=== PATIENT | female | born 1970 | race Caucasian/White ===

== ENCOUNTER 2017-10-18 11:58 | Emergency (ER) | payer OTHER ==
--- NOTE | 2017-10-18 17:58 | RAD ---
HISTORY: Low back pain COMPARISONS: None TECHNIQUE: Multiple contiguous axial CT scans were obtained of the lumbar spine without intravenous contrast, with coronal and sagittal multiplanar reformations. FINDINGS: SPINAL CANAL: Evaluation of the central canal is limited on CT technique; however, there is no obvious canalicular mass or epidural hemorrhage. ALIGNMENT: There is straightening of the lumbar lordosis. VERTEBRAL BODIES: There is minimal anterolateral marginal osteophyte formation with a small Schmorl's node along the superior end plate of L3. JOINTS: No subluxation or dislocation. MUSCULATURE: Normal INTERVERTEBRAL DISCS: There is mild loss of intervertebral disc height throughout the spine. AXIAL IMAGES: T12-L1: There is no osseous neural foraminal narrowing or central canal stenosis. L1-L2: There is no osseous neural foraminal narrowing or central canal stenosis. L2-L3: There is no osseous neural foraminal narrowing or central canal stenosis. L3-L4: There is no osseous neural foraminal narrowing or central canal stenosis. L4-L5: There is no osseous neural foraminal narrowing or central canal stenosis. L5-S1: There is no osseous neural foraminal narrowing or central canal stenosis. SOFT TISSUES: The visualized soft tissues of the abdomen are unremarkable. OTHER: None IMPRESSION: MILD DEGENERATIVE DISC DISEASE. NO OSSEOUS NEURAL FORAMINAL NARROWING OF CENTRAL CANAL STENOSIS.
--- NOTE | 2017-10-18 18:10 | ED ---
Back Pain - HPI Summary HPI Summary: 47F presents with back pain for past two weeks. Today it got worst and is much lower than before. She denies any loss of bowel or bladder or unary retention. She denies any pins and needle sensation in her pelvis. She states the location has changed today. she talked to her primary who told her to come here. She took Advil yesterday but nothing today. She denies any weakness. She is still able to ambulate. She states laying down yesterday did not help it like if normal does. She denies any fever. - History of Current Complaint Chief Complaint: EDBackInjuryPain Stated Complaint: LOW BACK PAIN Time Seen by Provider: 10/18/17 16:55 Pain Intensity: 7 - Allergies/Home Medications Allergies/Adverse Reactions: Allergies Allergy/AdvReac Type Severity Reaction Status Date / Time No Known Allergies Allergy Verified 08/29/16 12:21 PMH/Surg Hx/FS Hx/Imm Hx Endocrine/Hematology History: Denies: Hx Anticoagulant Therapy Cardiovascular History: Denies: Hx Pacemaker/ICD Infectious Disease History: No Infectious Disease History: Denies: Traveled Outside the [place] in Last 30 Days - Family History Known Family History: Positive: Hypertension - Social History Alcohol Use: None Substance Use Type: Reports: None Smoking Status (MU): Former Smoker Review of Systems Negative: Fever Negative: Chest Pain Negative: Shortness Of Breath Positive: Myalgia - back pain All Other Systems Reviewed And Are Negative: Yes Physical Exam Triage Information Reviewed: Yes Vital Signs On Initial Exam: Initial Vitals Temp Pulse Resp BP Pulse Ox 97.6 F 67 16 147/90 98 10/18/17 12:01 10/18/17 12:01 10/18/17 12:01 10/18/17 12:01 10/18/17 12:01 Vital Signs Reviewed: Yes Appearance: Positive: Well-Appearing Skin: Positive: Warm, Dry Head/Face: Positive: Normal Head/Face Inspection Eyes: Positive: Normal, Conjunctiva Clear Respiratory/Lung Sounds: Positive: Clear to Auscultation, Breath Sounds Present Cardiovascular: Positive: Normal, RRR Abdomen Description: Positive: Nontender, Soft Bowel Sounds: Positive: Present Musculoskeletal: Positive: Strength/ROM Intact - back, Other - tenderness L4-S1 , neg SLR, sensation grossly intact both sides, good pulses Neurological: Positive: Sensory/Motor Intact, Reflexes Intact - patella, Normal Gait Psychiatric: Positive: Normal Diagnostics - Vital Signs Vital Signs Temp Pulse Resp BP Pulse Ox 10/18/17 15:59 99.2 F 65 16 122/75 97 10/18/17 13:24 98.4 F 64 16 113/61 99 10/18/17 12:01 97.6 F 67 16 147/90 98 - Laboratory Lab Statement: Any lab studies that have been ordered have been reviewed, and results considered in the medical decision making process. - CT back CT Interpretation: No Acute Changes - IMPRESSION: MILD DEGENERATIVE DISC DISEASE. NO OSSEOUS NEURAL FORAMINAL NARROWING OF CENTRAL CANAL STENOSIS. CT Interpretation Completed By: Radiologist Back Pain Course/Dx - Course Course Of Treatment: 47F presents with back pain for past two weeks. Today it got worst and is much lower than before. She denies any loss of bowel or bladder or unary retention. She denies any pins and needle sensation in her pelvis. She states the location has changed today. she talked to her primary who told her to come here. She took Advil yesterday but nothing today. She denies any weakness. She is still able to ambulate. She states laying down yesterday did not help it like if normal does. She denies any fever. on exam tenderness L4-S1. neg SLR. neurovascular intact. will get CT as has back pain in different area. CT normal. will treat lidocaine patch. patient understand and agrees with plan. - Diagnoses Differential Diagnosis/HQI/PQRI: Positive: Herniated Disc, Strain, Sprain Provider Diagnoses: Back pain Discharge - Discharge Plan Condition: Good Disposition: HOME Prescriptions: Lidocaine PATCH 5%* [Lidoderm 5% Patch*] 1 patch TRANSDERM DAILY #6 patch Patient Education Materials: Back Pain (ED) Referrals: Berenice Lerner MD [Primary Care Provider] - Additional Instructions: Apply lidocaine patches to area for up to 12 hours in one 24 hour period Use ibuprofen or Tylenol for pain every 6 hours ice/heat area, move as much as possible Follow up with primary within 5 days Return to ED if develop any new or worsening symptoms
[2017-10-18] MEDS ORDERED: Lidocaine PATCH 5%* 1 PATCH TRANSDERM ONE (18:18)
[2017-10-18 18:45] VITALS: BP 104/69
== END 2017-10-18 18:41 | disposition home or self-care (01) ==
LOC: ED 11:58
DX: M51.36 Other intervertebral disc degeneration, lumbar region (principal); M54.9 Dorsalgia, unspecified
CPT/HCPCS: 72131; 99282; A9270-GY